=== PATIENT | female | born 1935 | race Two or more races ===

== ENCOUNTER 2017-11-23 10:55 | Outpatient (CLI) | payer OTHER ==
[~2017-11-23 10:55] MED LIST: CELEXA40 MG; KEFLEX500 MG PO; PREVACID30 MG; PROTONIX40 MG PO; ROBINUL FORTE2 MG; URIN D.S. TABLE1 TAB PO; ZANTAC150 M3
== END 2017-11-23 14:33 | disposition home or self-care (01) ==
LOC: MAMO-SONO 10:55
DX: Z12.31 Encounter for screening mammogram for malignant neoplasm of breast (principal); Z87.898 Personal history of other specified conditions; N63.10 Unspecified lump in the right breast, unspecified quadrant; N63.20 Unspecified lump in the left breast, unspecified quadrant; N64.4 Mastodynia; N60.11 Diffuse cystic mastopathy of right breast

== ENCOUNTER 2020-02-09 11:13 | Outpatient (CLI) | payer OTHER | END 2020-02-09 11:23 | disposition home or self-care (01) | LOC: LAB 11:13 → TOM 02-10 08:00 | PROVIDERS: ATTEND Radiology Diagnostic Radiology | DX: N20.0 Calculus of kidney (principal) ==

== ENCOUNTER 2020-02-10 08:14 | Outpatient (CLI) | payer OTHER | END 2020-02-10 08:16 | disposition home or self-care (01) | LOC: TOM 08:14 | PROVIDERS: ATTEND Obstetrics & Gynecology Maternal & Fetal Medicine | DX: M54.89 Other dorsalgia (principal) | CPT/HCPCS: 74177; Q9965 ==

== ENCOUNTER 2020-02-16 09:59 | Outpatient (CLI) | payer OTHER | END 2020-02-16 10:01 | disposition home or self-care (01) | LOC: NUCLEAR 09:59 | PROVIDERS: ATTEND Obstetrics & Gynecology Maternal & Fetal Medicine | DX: M81.0 Age-related osteoporosis without current pathological fracture (principal) ==

== ENCOUNTER 2020-02-17 10:47 | Outpatient (CLI) | payer OTHER | END 2020-02-17 15:00 | disposition home or self-care (01) | LOC: LAB 10:47 | PROVIDERS: ATTEND Obstetrics & Gynecology Maternal & Fetal Medicine | DX: R64 Cachexia (principal) ==

== ENCOUNTER 2020-03-02 16:03 | Emergency (ER) | payer OTHER ==
[~2020-03-02] VITALS: Ht 160 cm; Wt 51.7 kg
[2020-03-02] MEDS ORDERED: REMERON15 MG PO (16:36)
[2020-03-02] MEDS ORDERED: BACTRIM DS TAB1 EACH PO (19:04)
== END 2020-03-02 20:23 | disposition home or self-care (01) ==
LOC: ER 16:03
DX: N39.0 Urinary tract infection, site not specified (principal); K57.92 Diverticulitis of intestine, part unspecified, without perforation or abscess without bleeding

== ENCOUNTER 2020-04-26 14:35 | Outpatient (CLI) | payer OTHER ==
[~2020-04-26 14:35] MED LIST changes: +BACTRIM DS TAB1 EACH PO; +REMERON15 MG PO
== END 2020-04-26 14:40 | disposition home or self-care (01) ==
LOC: LAB 14:35
PROVIDERS: ATTEND Urology
DX: N30.00 Acute cystitis without hematuria (principal)

== ENCOUNTER 2020-11-23 07:51 | Outpatient (CLI) | payer OTHER | END 2020-11-23 07:56 | disposition home or self-care (01) | LOC: SONOGRAMA 07:51 | PROVIDERS: ATTEND Internal Medicine Cardiovascular Disease | DX: R10.84 Generalized abdominal pain (principal) ==

== ENCOUNTER 2021-06-24 09:18 | Outpatient (CLI) | payer OTHER | END 2021-06-24 09:26 | disposition home or self-care (01) | LOC: TOM 09:18 | PROVIDERS: ATTEND Internal Medicine Cardiovascular Disease | DX: K59.09 Other constipation (principal); K57.90 Diverticulosis of intestine, part unspecified, without perforation or abscess without bleeding; I11.9 Hypertensive heart disease without heart failure; I71.4 Abdominal aortic aneurysm, without rupture ==

== ENCOUNTER 2022-02-12 16:51 | Inpatient (IN) | payer OTHER ==
[~2022-02-12] VITALS: Ht 152.4 cm; Wt 52.2 kg
[~2022-02-12 16:51] MED LIST changes: +ARICEPT10 MG; +CITALOPRAM HBR20 MG; +INTESTINEX680 M1 PO
[2022-02-18] MEDS ORDERED: PANTOPRAZOLE SO40 MG (10:11)
== END 2022-03-06 14:11 | disposition left against medical advice (07) | DRG 378 ==
LOC: ER 16:51 → SEC-K 22:13 → SURG 02-14 12:07 → SURH 02-28 14:39
PROVIDERS: ADMIT Internal Medicine; ATTEND Internal Medicine
PROC: 30233N1 Transfusion of Nonautologous Red Blood Cells into Peripheral Vein, Percutaneous Approach (ICD-10-PCS; principal; 2022-02-16)
PROC: 02HV33Z Insertion of Infusion Device into Superior Vena Cava, Percutaneous Approach (ICD-10-PCS; 2022-02-20)
PROC: 0DJ08ZZ Inspection of Upper Intestinal Tract, Via Natural or Artificial Opening Endoscopic (ICD-10-PCS; 2022-02-21)
PROC: 0DJD8ZZ Inspection of Lower Intestinal Tract, Via Natural or Artificial Opening Endoscopic (ICD-10-PCS; 2022-03-05)
DX: K29.01 Acute gastritis with bleeding (principal); D62 Acute posthemorrhagic anemia; N39.0 Urinary tract infection, site not specified; K44.9 Diaphragmatic hernia without obstruction or gangrene; E87.6 Hypokalemia; K57.30 Diverticulosis of large intestine without perforation or abscess without bleeding
CPT/HCPCS: 74175

== ENCOUNTER 2022-10-21 09:44 | Outpatient (CLI) | payer OTHER ==
[~2022-10-21 09:44] MED LIST changes: +PANTOPRAZOLE SO40 MG
== END 2022-10-21 09:52 | disposition home or self-care (01) ==
LOC: TOM 09:44
PROVIDERS: ATTEND Internal Medicine Gastroenterology
DX: R10.10 Upper abdominal pain, unspecified (principal); R10.30 Lower abdominal pain, unspecified; K25.3 Acute gastric ulcer without hemorrhage or perforation

== ENCOUNTER → 2022-10-31 | Outpatient (CLI) | payer OTHER | END | disposition home or self-care (01) | LOC: SONOGRAMA 10:43 | PROVIDERS: ATTEND Obstetrics & Gynecology | DX: R10.32 Left lower quadrant pain (principal) ==

== ENCOUNTER 2023-03-09 10:08 | Outpatient (CLI) | payer OTHER | END 2023-03-09 10:15 | disposition home or self-care (01) | LOC: TOM 10:08 | PROVIDERS: ATTEND Internal Medicine Pulmonary Disease | DX: R91.1 Solitary pulmonary nodule (principal) ==

== ENCOUNTER 2023-03-20 11:55 | Outpatient (CLI) | payer OTHER | END 2023-03-20 12:03 | disposition home or self-care (01) | LOC: RAD 11:55 | PROVIDERS: ATTEND Urology | DX: R35.0 Frequency of micturition (principal); R31.29 Other microscopic hematuria ==

== ENCOUNTER 2023-07-06 11:46 | Outpatient (CLI) | payer OTHER | END 2023-07-06 11:49 | disposition home or self-care (01) | LOC: SONOGRAMA 11:46 | PROVIDERS: ATTEND Obstetrics & Gynecology Maternal & Fetal Medicine | DX: R10.10 Upper abdominal pain, unspecified (principal); Z91.041 Radiographic dye allergy status ==